=== PATIENT | female | born 1950 | race Caucasian/White ===

== ENCOUNTER 2016-06-28 19:08 | Observation (INO) | payer OTHER ==
[~2016-06-28] VITALS: Ht 167.6 cm; Wt 66.0 kg
[~2016-06-28 19:08] MED LIST: ACET325T45 PO; ALEN70TA30 PO; AMIT50TA3 PO; CALC500T PO; DIVA500T33 PO; FAMO-18 PO; FLUT16SP24 NASAL; HYDR-3498 PO; IBUP800T25 PO; LISI20TA11 PO; MULT1TAB13 PO; PROP10TA6 PO; RED600CA7 PO; SUMA100T9 PO; TRAM50TA2 PO; ZOLP5TAB PO
[2016-06-28] MEDS ORDERED: ASPIRIN 81 MG TAB PO STA (19:18)
[2016-06-28] MEDS ORDERED: NITROGLYCERIN 2% 1 GM OINT PKT TD STA (19:18)
[2016-06-28] MEDS ORDERED: NITROGLYCERIN (SL) 0.4 MG TAB SL PRN (19:30)
[2016-06-28 19:50] LABS: ADD SCAN DIFF NO
[2016-06-28 19:52] LABS: BASOPHIL # 0.1 10^3/ul (0.0-0.1); BASOPHILS % 0.8 % (0.0-2.0); EOSINOPHILS # 0.2 10^3/ul (0.0-0.5); EOSINOPHILS % 2.6 % (0.0-7.0); HEMATOCRIT 43.9 % (37.0-47.0); HEMOGLOBIN 14.3 g/dl (12.0-16.0); MEAN CORPUSCULAR HGB CONC 32.6 g/dl (32.0-37.0); MEAN PLATELET VOLUME 11.6 fl (7.4-10.4); MONOCYTE # 0.5 10^3/ul (0.3-0.9); NEUTROPHIL # 5.6 10^3/ul (1.6-7.5); NEUTROPHILS % 65.9 % (39.0-77.0); PLATELET COUNT 241 10^3/UL (140-415); RED BLOOD COUNT 4.77 10^6/ul (4.20-5.40); RED CELL DISTRIBUTION WIDTH 12.7 % (11.5-14.5); WHITE BLOOD COUNT 8.5 10^3/ul (4.8-10.8)
[2016-06-28 20:03] LABS: INR 0.94; PROTIME 12.6 Sec (12.2-14.2)
[2016-06-28 20:04] LABS: CHLORIDE 99 mmol/L (97-110); PARTIAL THROMBOPLASTIN TIME 29.2 Sec (25.0-35.0); POTASSIUM 4.1 mmol/L (3.5-5.1); SODIUM 141 mmol/L (135-144)
[2016-06-28 20:07] LABS: ANION GAP 19 (8-16); BLOOD UREA NITROGEN 11 mg/dl (7-20); CARBON DIOXIDE 27 mmol/L (21-31); CREATININE 0.61 mg/dl (0.44-1.00); GLUCOSE 131 mg/dl (70-220)
[2016-06-28 20:21] LABS: TROPONIN-I < 0.012 ng/ml (0.00-0.12)
--- NOTE | 2016-06-28 20:34 | RADRPT ---
PROCEDURE: XR Chest. CLINICAL INDICATION: Chest pain. TECHNIQUE: Portable AP upright view of the chest was obtained. COMPARISON: 05/23/2014 FINDINGS: The cardiomediastinal silhouette is within normal limits. The lungs are clear, mild elevation of th e right hemidiaphragm is unchanged. There is no evidence for pleural effusion, pneumothorax or pulm onary vascular congestion. The osseous structures are intact with no evidence for acute abnormality . RPTAT:HJJR IMPRESSION: No evidence for acute intrathoracic pathology or interval change from 05/23/2014. Physician Joann Date Time Electronically viewed and signed by Physician Joann on 06/28/2016 20:34 JR/
[2016-06-28] MEDS ORDERED: ALPR0.254 PO (20:46)
[2016-06-28] MEDS ORDERED: CITA20TA6 PO (20:46)
[2016-06-28] MEDS ORDERED: DICL75TA2 PO (20:47)
[2016-06-28] MEDS ORDERED: ZOLP10TA5 PO (20:48)
[2016-06-28] MEDS ORDERED: ERGO500037 PO (20:48)
[2016-06-28] MEDS ORDERED: OMEP40CA6 PO (20:49)
[2016-06-28] MEDS ORDERED: TRAZ50TA18 PO (20:49)
[2016-06-28] MEDS ORDERED: MONT10TA24 PO (20:50)
[2016-06-28] MEDS ORDERED: HYDR-902 PO (20:51)
[2016-06-28] MEDS ORDERED: ACETAMINOPHEN 325 MG TAB PO PRN (22:00)
[2016-06-28] MEDS ORDERED: ONDANSETRON 4 MG INJ IV PRN (22:00)
[2016-06-28] MEDS ORDERED: morphine 4 MG/ML VIAL IV STA (22:01)
[2016-06-28] MEDS ORDERED: ONDANSETRON 4 MG INJ IV STA (22:01)
[2016-06-28 22:23] VITALS: TEMP 98.5
--- NOTE | 2016-06-28 22:42 | ERA ---
ER Documentation Chief Complaint Date/Time DATE: 06/28/16 TIME: 22:41 Chief Complaint chest pain x 3 days HPI Patient is a 65-year-old female with back pain and hypertension who presents with chest pain. She says that she feels weak. She has sweats and decreased appetite over the past 3 days. The pain comes and goes. She feels palpitations as well. She tried [place] with minimal help. Upon review of old medical records the patient has multiple visits to the ER for various complaints. The patient's primary doctor is Dr. Canales. ROS All systems reviewed and are negative except as per history of present illness. Medications Home Meds Reported Medications Hydrocodone/Acetaminophen ([place] 10-325 Tablet) 1 Each Tablet, 1 EACH PO Q4H Y for PRN, TAB 06/28/16 Montelukast Sodium* (Montelukast Sodium*) 10 Mg Tablet, 10 MG PO QHS, #30 TAB 06/28/16 Omeprazole* (Omeprazole*) 40 Mg Capsule.dr, 40 MG PO DAILY, #30 CAP 06/28/16 Trazodone Hcl* (Trazodone Hcl*) 50 Mg Tablet, 50 MG PO QHS, #30 TAB 06/28/16 Zolpidem Tartrate* (Zolpidem Tartrate*) 10 Mg Tablet, 10 MG PO QHS Y for INSOMNIA, #30 TAB 06/28/16 Ergocalciferol (Vitamin D2) (VITAMIN D2) 50,000 Unit Capsule, 20227 UNIT PO Q7D , CAP 06/28/16 Diclofenac Sodium* (Diclofenac Sodium*) 75 Mg Tablet.dr, 75 MG PO BID, #60 TAB 06/28/16 Alprazolam* (Alprazolam*) 0.25 Mg Tablet, 0.25 MG PO DAILY Y for ANXIETY, TAB 06/28/16 Citalopram Hydrobromide* (Citalopram Hydrobromide*) 20 Mg Tablet, 20 MG PO DAILY , #30 TAB 06/28/16 Lisinopril* (Lisinopril*) 20 Mg Tablet, 20 MG PO DAILY, TAB 10/12/14 Propranolol Hcl* (Propranolol Hcl*) 10 Mg Tablet, 10 MG PO DAILY, TAB 10/12/14 Divalproex Sodium (Depakote) 500 Mg Tablet.dr, 500 MG PO DAILY 05/07/12 Discontinued Reported Medications Zolpidem Tartrate* (Ambien*) 5 Mg Tablet, 5 MG PO HS Y for INSOMNIA, TAB 10/12/14 Red Yeast Rice Extract (Red Yeast Rice) 600 Mg Capsule, 1200 MG PO DAILY 06/17/14 Famotidine* (Pepcid*) 20 Mg Tablet, 20 MG PO DAILY, TAB 06/17/14 Alendronate Sodium* (Fosamax*) 70 Mg Tablet, 70 MG PO Q7D, TAB ON Saturday06/17/14 Acetaminophen* (Acetaminophen*) 325 Mg Tablet, 325 MG PO BID Y for PAIN, TAB 06/17/14 Sumatriptan Succinate* (Imitrex*) 100 Mg Tablet, 100 MG PO BID Y for HEADACHE, TAB May repeat after 2 hours if needed; MAX 200 mg/24 hours 06/17/14 Fluticasone Propionate* (Flonase* Nasal) 50 Mcg/[place] - 16 Gm [place].susp, 2 SPRAY NASAL DAILY, SPRAY TO EACH NOSTRIL 05/23/14 Multivitamins W-Minerals (Daily Vitamin & Minerals) 1 Tab Tablet, 1 TAB PO DAILY 05/23/14 Calcium Carbonate* (Os-Shyam 500*) 1 Tab Tablet, 1 TAB PO DAILY, TAB 02/04/14 Amitriptyline Hcl* (Amitriptyline Hcl*) 50 Mg Tablet, 50 MG PO HS 05/07/12 Discontinued Scripts Ibuprofen* (Motrin*) 800 Mg Tab, 800 MG PO Q6, #30 TAB Prov:HORACE CHAUDHRY NP 05/16/15 Hydrocodone Bit-Acetaminophen* ([place]*) 5-325 Mg Tab, 1 TAB PO Q6 Y for PAIN, # 6 TAB Prov:MONALISA BROWN PA-C 12/18/14 Tramadol HCl (Tramadol HCl) 50 Mg Tab, 50 MG PO Q6 Y for PAIN, #20 TAB Prov:LAURA DENNEY MD 10/12/14 Allergies Allergies: Coded Allergies: Penicillins (Verified Allergy, Unknown, 06/28/16) codeine (Verified Allergy, Unknown, 06/28/16) PMhx/Soc History of Surgery: Yes (brain sx for aneurysm (1994), R SHOULDER SX) Anesthesia Reaction: No Hx Neurological Disorder: Yes (migraine, aneurysm) Hx Respiratory Disorders: No Hx Cardiac Disorders: No Hx Psychiatric Problems: No Hx Miscellaneous Medical Probl: Yes (OA) Hx Alcohol Use: No Hx Substance Use: Yes ( marijuana) Hx Tobacco Use: No Smoking Status: Current every day smoker FmHx Family History: coronary disease Physical Exam Vitals Vital Signs Date Time Temp Pulse Resp B/P Pulse Ox O2 Delivery O2 Flow Rate FiO2 06/28/16 22:23 98.5 20 117/83 98 06/28/16 19:12 98.5 72 20 128/60 96 Physical Exam Const: Mild distress Head: Atraumatic Eyes: Normal Conjunctiva ENT: Normal External Ears, Nose and Mouth. Neck: Full range of motion..~ No meningismus. Resp: Clear to auscultation bilaterally Cardio: Regular rate and rhythm, no murmurs Abd: Soft, non tender, non distended. Normal bowel sounds Skin: Pale and diaphoretic Back: No midline or flank tenderness Ext: No cyanosis, or edema Neur: Awake and alert Psych: Normal Mood and Affect Result Diagram: 06/28/16191906/28/161919 Results 24 hrs Laboratory Tests Test 06/28/16 19:20 White Blood Count 8.510^3/ul Red Blood Count 4.7710^6/ul Hemoglobin 14.3g/dl Hematocrit 43.9% Mean Corpuscular Volume 92.0fl Mean Corpuscular Hemoglobin 30.0pg Mean Corpuscular Hemoglobin Concent 32.6g/dl Red Cell Distribution Width 12.7% Platelet Count 01183^3/UL Mean Platelet Volume 11.6fl Neutrophils % 65.9% Lymphocytes % 24.0% Monocytes % 6.0% Eosinophils % 2.6% Basophils % 0.8% Nucleated Red Blood Cells % 0.0/100WBC Neutrophils # 5.610^3/ul Lymphocytes # 2.010^3/ul Monocytes # 0.510^3/ul Eosinophils # 0.210^3/ul Basophils # 0.110^3/ul Nucleated Red Blood Cells # 0.010^3/ul Prothrombin Time 12.6Sec Prothrombin Time Ratio 1.0 INR International Normalized Ratio 0.94 Activated Partial Thromboplast Time 29.2Sec Sodium Level 141mmol/L Potassium Level 4.1mmol/L Chloride Level 99mmol/L Carbon Dioxide Level 27mmol/L Anion Gap 19 Blood Urea Nitrogen 11mg/dl Creatinine 0.61mg/dl Glucose Level 131mg/dl Calcium Level 10.0mg/dl Troponin I < 0.012ng/ml Current Medications Medications (Trade) Dose Ordered Sig/Alexandr Route PRN Reason Start Time Stop Time Status Last Admin Dose Admin Aspirin (Aspirin) 162 mg ONCE STAT PO 06/28/16 19:18 06/28/16 19:20 DC 06/28/16 19:48 Nitroglycerin (Nitroglycerin 2% Oint) 1 inch ONCE STAT TD 06/28/16 19:18 06/28/16 19:20 DC 06/28/16 19:48 Nitroglycerin (Nitroglycerin (Sl Tab) 0.4 Mg) 1 tab Q5M UP TO 3 DOSES PRN SL CHEST PAIN 06/28/16 19:30 Ondansetron HCl (Zofran Inj) 4 mg ER BRIDGE PRN IV NAUSEA AND/OR VOMITING 06/28/16 22:00 06/29/16 21:59 Acetaminophen (Tylenol Tab) 650 mg ER BRIDGE PRN PO MILD PAIN/FEVER 06/28/16 22:00 06/29/16 21:59 Morphine Sulfate (morphine) 4 mg ONCE STAT IV 06/28/16 22:01 06/28/16 22:02 DC 06/28/16 22:31 Ondansetron HCl (Zofran Inj) 4 mg ONCE STAT IV 06/28/16 22:01 06/28/16 22:02 DC 06/28/16 22:31 Procedures/MDM EKG read by me: Rate/Rhythm: Regular rate and rhythm at a normal rate Intervals: Normal Impression: No evidence of ischemia or arrhythmia Chest x-ray shows no pneumonia or pneumothorax per radiology. Patient is a 65-year-old female presents with chest pain. I am concerned for possible acute coronary syndrome. I doubt pneumonia, pneumothorax, pulmonary embolism, or aortic dissection. The patient was given aspirin nitroglycerin. She will be admitted to the care of Dr. Simon as the patient has regal insurance. She will be admitted to a telemetry bed. Departure Diagnosis: Primary Impression: Chest pain Qualified Code: R07.9 - Chest pain, unspecified type Condition: LAURA Hidalgo MD Jun 28, 2016 22:42
[2016-06-28 23:09] VITALS: Ht 167.6 cm; Wt 66.0 kg
[2016-06-28 23:11] VITALS: PULSE 76
[2016-06-29] VITALS (8 sets, daily range): BP systolic 114–124; BP diastolic 58–71; PULSE 61–84; RESP 18
[2016-06-29] MEDS ORDERED: morphine 2 MG INJ IV PRN (01:00)
[2016-06-29] MEDS ORDERED: NITROGLYCERIN (SL) 0.4 MG TAB SL PRN (01:00)
[2016-06-29] MEDS ORDERED: ALPRAZOLAM 0.25 MG TAB PO PRN (01:00)
[2016-06-29] MEDS ORDERED: ZOLPIDEM 5 MG TAB PO PRN (01:00)
[2016-06-29] MEDS ORDERED: ONDANSETRON 4 MG INJ IV PRN (01:00)
[2016-06-29] MEDS ORDERED: DOCUSATE SODIUM 100 MG CAP PO PRN (01:00)
[2016-06-29] MEDS: PROPRANOLOL 10 MG TAB PO SCH ×2 (01:00→08:53)
[2016-06-29] MEDS ORDERED: NACL 0.9% 3 ML SYG IV SCH (01:00)
[2016-06-29] MEDS ORDERED: ACETAMINOPHEN 325 MG TAB PO PRN (01:00)
[2016-06-29] MEDS ORDERED: BISACODYL 10 MG SUPP PR PRN (01:00)
[2016-06-29] MEDS ORDERED: MAGNESIUM HYDROXIDE 30ML CUP PO PRN (01:00)
[2016-06-29 01:19] LABS: CREATINE KINASE 21 IU/L (23-200)
[2016-06-29] MEDS: SOD CHLORIDE 0.9% 1,000 ML IV SCH ×2 (01:31→13:17)
[2016-06-29] MEDS: HYDROCODONE/APAP (10/325) TAB PO PRN ×2 (01:32→08:59)
[2016-06-29 01:42] LABS: CK-MB < 0.22 ng/ml (0.0-2.4); TROPONIN-I < 0.012 ng/ml (0.00-0.12)
[2016-06-29] MEDS ORDERED: PANTOPRAZOLE (EC) 40 MG TAB PO SCH (06:00)
[2016-06-29 07:53] LABS: ADD SCAN DIFF NO
[2016-06-29 07:58] LABS: BASOPHIL # 0.1 10^3/ul (0.0-0.1); BASOPHILS % 0.7 % (0.0-2.0); EOSINOPHILS # 0.3 10^3/ul (0.0-0.5); EOSINOPHILS % 2.8 % (0.0-7.0); HEMATOCRIT 34.1 % (37.0-47.0); HEMOGLOBIN 11.2 g/dl (12.0-16.0); LYMPHOCYTES # 3.4 10^3/ul (0.8-2.9); LYMPHOCYTES % 38.4 % (15.0-51.0); MEAN CORPUSCULAR HGB CONC 32.8 g/dl (32.0-37.0); MEAN CORPUSCULAR VOLUME 91.4 fl (82.0-101.0); MEAN PLATELET VOLUME 11.3 fl (7.4-10.4); MONOCYTE # 0.7 10^3/ul (0.3-0.9); MONOCYTES % 8.1 % (0.0-11.0); NEUTROPHIL # 4.4 10^3/ul (1.6-7.5); NEUTROPHILS % 49.4 % (39.0-77.0); PLATELET COUNT 204 10^3/UL (140-415); RED BLOOD COUNT 3.73 10^6/ul (4.20-5.40); RED CELL DISTRIBUTION WIDTH 12.7 % (11.5-14.5); WHITE BLOOD COUNT 8.9 10^3/ul (4.8-10.8)
[2016-06-29 08:20] LABS: ALBUMIN 3.5 g/dl (3.3-4.9)
[2016-06-29 08:21] LABS: POTASSIUM 3.8 mmol/L (3.5-5.1)
[2016-06-29 08:23] LABS: ALBUMIN/GLOBULIN RATIO 1.16; BILIRUBIN,INDIRECT 0.2 mg/dl (0-1.1); BILIRUBIN,TOTAL 0.2 mg/dl (0.2-1.3); CREATININE 0.59 mg/dl (0.44-1.00); TOTAL PROTEIN 6.5 g/dl (6.1-8.1)
[2016-06-29 08:24] LABS: CALCIUM 9.1 mg/dl (8.4-10.2); CHOL/HDL RATIO 3.2 RATIO
[2016-06-29 08:28] LABS: CREATINE KINASE < 20 IU/L (23-200)
[2016-06-29 08:29] LABS: CK-MB 0.34 ng/ml (0.0-2.4)
[2016-06-29 08:39] LABS: TROPONIN-I < 0.012 ng/ml (0.00-0.12)
[2016-06-29] MEDS ORDERED: DIVALPROEX (EC) 500 MG TAB PO SCH (09:00)
[2016-06-29] MEDS ORDERED: ENOXAPARIN 40 MG/0.4 ML SYG SC SCH (09:00)
[2016-06-29] MEDS ORDERED: CITALOPRAM 20 MG TAB PO SCH (09:00)
[2016-06-29] MEDS ORDERED: ASPIRIN 81 MG TAB PO SCH (09:00)
[2016-06-29] MEDS ORDERED: LISINOPRIL 20 MG TAB PO SCH (09:00)
--- NOTE | 2016-06-29 10:09 | HP ---
DATE OF ADMISSION: 06/28/2016 CHIEF COMPLAINT ON ADMISSION: Chest pain. HISTORY OF PRESENT ILLNESS: This is a 65-year-old female with multiple chronic history of multiple herniated disks, back pain, apparently a T-spine fracture, osteoporosis, osteoarthritis, migraine he adaches, hypertension, major depressive disorder, who presented to the emergency department with com plaints of chest pains for the past 3 days. The patient reports that the pain is sharp. It is repr oducible on exam, and it comes and goes. She has had MRI of her brain, lumbar spine and another lev el, apparently either her knees or her thoracic spine, 3 weeks ago by her primary care physician and was told there were no acute findings already. Her migraine headaches are at baseline and again sh e has already been worked up as an outpatient and put on appropriate therapy by her primary care Dr. Parker acosta. The patient reports that she had a stress test a year ago which was negative. Th is was prior to surgery she had to have done. She denies any diabetes mellitus, previous coronary a rtery disease or peripheral vascular disease. She had a history of brain aneurysm that had to be re moved apparently years ago. She is currently awaiting knee replacement from what she is reporting. The patient reports that with the chest discomfort/chest pains, she had some palpitations and diaph oresis, also some nausea. However, the pain is described as sharp and again on exam and during echo cardiogram, she reports that it was reproducible with the echocardiogram probe. This morning, her b lood pressure is stable, no signs of diaphoresis. No nausea, no vomiting. Cardiology evaluation pe nding, but 2-D echocardiogram has been done. Cardiac enzymes are negative x3. ALLERGIES 1. PENICILLIN. 2. CODEINE. PAST MEDICAL HISTORY: 1. Chronic migraine headaches. 2. Chronic pain from herniated disk. 3. Chronic back pain including thoracic spine. 4. History of thoracic spine compression fracture, from what she is reporting, it is unclear which level, but patient had followup MRI 3 weeks ago that were reviewed by her primary care physician tashi jensen. 5. Hypertension. 6. Major depressive disorder. 7. Osteoporosis. 8. Osteoarthritis. PAST SURGICAL HISTORY: 1. Status post brain aneurysm removal, remotely. 2. Status post left hip surgery. 3. Status post right shoulder surgery. 4. Status post appendectomy, remotely. 5. Status post cholecystectomy, remotely. OUTPATIENT MEDICATIONS: 1. Lisinopril 20 mg p.o. daily. 2. Propranolol 10 mg p.o. daily. 3. Alprazolam 0.25 mg p.o. daily p.r.n. anxiety. 4. Citalopram 20 mg p.o. daily. 5. Diclofenac 75 mg p.o. b.i.d. 6. Depakote 500 mg p.o. daily. 7. [place] 10/325 one tab p.o. q.4h. p.r.n. pain. 8. Trazodone 50 mg p.o. at bedtime. 9. Ambien 10 mg p.o. at bedtime p.r.n. insomnia. 10. Singulair 10 mg p.o. at bedtime. 11. Omeprazole 40 mg p.o. daily. 12. Vitamin D3 50,000 units q. weekly. PHYSICAL EXAMINATION: VITAL SIGNS: Temperature is 98.0, heart rate of 77, respiratory rate of 18, blood pressure 116/71. The patient is saturating 93% on room air. GENERAL: She is alert and oriented x4. Currently, she is in no acute distress. She was complainin g of a headache; therefore, the nitro paste was removed. HEENT: Pupils are equally round and reactive to light. Extraocular muscles are intact. Anicteric sclerae. NECK: No JVD, no thyromegaly noted. HEART: Regular rate and rhythm. No murmur, rubs, or gallops. No murmur, rubs, or gallops. The ch est pain she is describing is reproducible on deep palpation of the chest wall. LUNGS: Clear to auscultation bilaterally. ABDOMEN: Soft, nontender, nondistended. Bowel sounds are present. EXTREMITIES: No edema, clubbing or cyanosis. The patient does have crepitus in her knees. She has scars on her left hip from a previous surgery. Also, a scar on her right shoulder from previous ralph rgery. NEUROLOGIC: Grossly intact. LABORATORY DATA: White blood cell count 8.9, hemoglobin 11.2, hematocrit 34.1, platelet count of 20 4. Chemistry with a sodium of 142, potassium 3.8, chloride 106, bicarbonate 26, BUN 9, creatinine 0 .59, glucose 92, calcium 9.1. Total bilirubin 0.2, AST 17, ALT 21, alkaline phosphatase of 68. Tro ponin less than 0.012 x3. LFTs within normal. Cholesterol level fairly normal. INR 0.94, PT 12.6, PTT 29.2. Chest x-ray shows no evidence of intrathoracic pathology or changes. EKG shows normal sinus rhythm, no acute ST or T-wave abnormalities. ASSESSMENT AND PLAN: This is a 65-year-old female with: 1. Chest pain which is fairly atypical, reproducible. Echocardiogram has been done, to be reviewed by Dr. Jack. Cardiac enzymes are negative x3. EKG stable. This seems to be very atypical there fore, if okay with cardiology after evaluation, the patient may be discharged home with outpatient c ardiology followup if no further cardiac evaluation to be done. 2. Hypertension. Blood pressure is stable. Continue home medications. 3. Migraine headache. Continue home medication. 4. Major depressive disorder. Continue home medication. 5. Chronic pain. Continue narcotics as needed. Of note, the patient also uses marijuana for pain management. She uses 1 joint every 5 days. 6. Osteoporosis and osteoarthritis with known disk herniation and T-spine compression fracture, all stable per patient. MRIs have been as an outpatient. 7. History of brain aneurysm removal with ongoing migraine headaches. MRI brain had been done appr oximately 3 weeks ago and again the patient is reporting it was within normal according to her prima care physician. 8. Prophylaxis. Lovenox for deep venous thrombosis prophylaxis. Pepcid for gastrointestinal proph ylaxis. DISPOSITION: Cardiology evaluation pending and if okay with bullard operator, the patient may be discha rged home later today if no further workup needed. Dictated By: SAGRARIO TOUSSAINT/NTS Conf#: [id number] DID#: [id number]
--- NOTE | 2016-06-29 14:17 | PDOCDIS ---
Discharge Instructions CONDITION Patient Condition: Good HOME CARE INSTRUCTIONS: Diet Instructions: Reduced Sodium ACTIVITY: Activity Restrictions: Slowly Increase Activity FOLLOW UP/APPOINTMENTS Appointments Follow up with PCP within 1 week Follow up with cardiology as outpatient as needed SAGRARIO MCDUFFIE Jun 29, 2016 14:17
--- NOTE | 2016-06-29 15:25 | CONS ---
Date/Time of Note Date/Time of Note DATE: 06/29/16 TIME: 15:23 Assessment/Plan Assessment/Plan Additional Assessment/Plan ATYPICAL CHEST PAIN HTN HX OF CEREBRAL ANEURSYM DEPRESSION VERY ATYPICAL CHEST PAIN, NORMAL TROPS, NO EKG CAHNGES UNLIKELY CARIDAC IN ORIGIN BP MANAGMENT D/C PLANNING Consultation Date/Type/Reason Admit Date/Time Jun 28, 2016 at 21:52 Hx of Present Illness This is a 65-year-old female with multiple chronic history of multiple herniated disks, back pain, apparently a T-spine fracture, osteoporosis, osteoarthritis, migraine headaches, hypertension, major depressive disorder, who presented to the emergency department with complaints of chest pains for the past 3 days. The patient reports that the pain is sharp. It is reproducible on exam, and it comes and goes. She has had MRI of her brain, lumbar spine and another level, apparently either her knees or her thoracic spine, 3 weeks ago by her primary care physician and was told there were no acute findings already. Her migraine headaches are at baseline and again she has already been worked up as an outpatient and put on appropriate therapy by her primary care physician, Dr. Canales. The patient reports that she had a stress test a year ago which was negative. This was prior to surgery she had to have done. She denies any diabetes mellitus, previous coronary artery disease or peripheral vascular disease. She had a history of brain aneurysm that had to be removed apparently years ago. She is currently awaiting knee replacement from what she is reporting. The patient reports that with the chest discomfort/chest pains, she had some palpitations and diaphoresis, also some nausea. However, the pain is described as sharp and again on exam and during echocardiogram, she reports that it was reproducible with the echocardiogram probe. This morning, her blood pressure is stable, no signs of diaphoresis. No nausea, no vomiting. Cardiology evaluation pending, but 2-D echocardiogram has been done. Cardiac enzymes are negative x3. Social History Smoking Status: Current every day smoker Exam/Review of Systems Vital Signs Vitals Vital Signs Date Time Temp Pulse Resp B/P Pulse Ox O2 Delivery O2 Flow Rate FiO2 06/29/16 12:15 61 06/29/16 12:09 98.5 18 114/61 97 Results Result Diagram: 06/29/16 0735 06/29/16 0735 Results 24 hrs Laboratory Tests Test 06/28/16 19:20 4/14/17 00:53 06/29/16 07:35 White Blood Count 8.5 # 8.9 Red Blood Count 4.77 3.73 #L Hemoglobin 14.3 # 11.2 #L Hematocrit 43.9 # 34.1 #L Mean Corpuscular Volume 92.0 91.4 Mean Corpuscular Hemoglobin 30.0 30.0 Mean Corpuscular Hemoglobin Concent 32.6 32.8 Red Cell Distribution Width 12.7 12.7 Platelet Count 241 204 Mean Platelet Volume 11.6 #H 11.3 H Neutrophils % 65.9 49.4 Lymphocytes % 24.0 38.4 Monocytes % 6.0 8.1 Eosinophils % 2.6 2.8 Basophils % 0.8 0.7 Nucleated Red Blood Cells % 0.0 0.0 Neutrophils # 5.6 4.4 Lymphocytes # 2.0 3.4 H Monocytes # 0.5 0.7 Eosinophils # 0.2 0.3 Basophils # 0.1 0.1 Nucleated Red Blood Cells # 0.0 0.0 Prothrombin Time 12.6 Prothrombin Time Ratio 1.0 INR International Normalized Ratio 0.94 Activated Partial Thromboplast Time 29.2 Sodium Level 141 142 Potassium Level 4.1 3.8 Chloride Level 99 106 Carbon Dioxide Level 27 26 Anion Gap 19 H 14 Blood Urea Nitrogen 11 9 Creatinine 0.61 0.59 Glucose Level 131 92 Calcium Level 10.0 9.1 Troponin I < 0.012 < 0.012 < 0.012 Creatine Kinase 21 L < 20 L Creatine Kinase Index 1.0 Creatinine Kinase MB (Mass) < 0.22 0.34 Magnesium Level 2.0 Total Bilirubin 0.2 Direct Bilirubin 0.00 Indirect Bilirubin 0.2 Aspartate Amino Transf (AST/SGOT) 17 Alanine Aminotransferase (ALT/SGPT) 21 Alkaline Phosphatase 68 Total Protein 6.5 Albumin 3.5 Globulin 3.00 Albumin/Globulin Ratio 1.16 Triglycerides Level 140 Cholesterol Level 105 LDL Cholesterol, Calculated 45 HDL Cholesterol 32 L Cholesterol/HDL Ratio 3.2 Medications Medications Current Medications Sodium Chloride (NS) 1,000 ml @ 100 mls/hr Q10H IV Last administered on t 13:17; Admin Dose 100 MLS/HR; Start 06/29/16 at 00:41 Ondansetron HCl (Zofran Inj) 4 mg Q6H PRN IV NAUSEA AND/OR VOMITING; Start at 01:00 Aspirin (Aspirin) 81 mg DAILY PO Last administered on 06/29/16 08:51; Admin Dose 81 MG; Start 06/29/16 at 09:00 Nitroglycerin (Nitroglycerin (Sl Tab) 0.4 Mg) 1 tab Q5M PRN SL CHEST PAIN; Start 06/29/16 at 01:00 Acetaminophen (Tylenol Tab) 650 mg Q6H PRN PO PAIN LEVEL 1-3 OR FEVER; Start at 01:00 Morphine Sulfate (morphine) 2 mg Q4H PRN IV PAIN LEVEL 7-10; Start 06/29/16 at 01:00 Docusate Sodium (Colace) 100 mg Q12H PRN PO CONSTIPATION; Start 06/29/16 at 01: 00 Magnesium Hydroxide (Milk Of Mag) 30 ml DAILY PRN PO CONSTIPATION; Start at 01:00 Bisacodyl (Dulcolax Supp) 10 mg DAILY PRN CA CONSTIPATION; Start 06/29/16 at 01 :00 Pantoprazole (Protonix Tab) 40 mg DAILY@06 PO Last administered on 06/29/16 06 :00; Admin Dose 40 MG; Start 06/29/16 at 06:00 Enoxaparin Sodium (Lovenox) 40 mg DAILY SC Last administered on 06/29/16 08:54 ; Admin Dose 40 MG; Start 06/29/16 at 09:00 Alprazolam (Xanax) 0.25 mg Q8 PRN PO ANXIETY; Start 06/29/16 at 01:00 Citalopram Hydrobromide (Celexa) 20 mg DAILY PO Last administered on 06/29/16 08:52; Admin Dose 20 MG; Start 06/29/16 at 09:00 Divalproex Sodium (Depakote) 500 mg DAILY PO Last administered on 06/29/16 08: 52; Admin Dose 500 MG; Start 06/29/16 at 09:00 Acetaminophen/ Hydrocodone Bitart ([place] (10/325)) 1 tab Q4H PRN PO PAIN Last administered on 06/29/16 08:59; Admin Dose 1 TAB; Start 06/29/16 at 01:00 Lisinopril (Zestril) 20 mg DAILY PO Last administered on 06/29/16 08:53; Admin Dose 20 MG; Start 06/29/16 at 09:00 Montelukast Sodium (Singulair) 10 mg QHS PO ; Start 06/29/16 at 21:00 Propranolol HCl (Inderal) 10 mg BID PO Last administered on 06/29/16 08:53; Admin Dose 10 MG; Start 06/29/16 at 01:00 Trazodone HCl (Desyrel) 50 mg QHS PO ; Start 06/29/16 at 21:00 FRANCISCO AMAYA MD Jun 29, 2016 15:25
--- NOTE | 2016-06-29 16:12 | RADRPT ---
Echocardiogram Report Patient Name: GRICELDA CRONIN Gender: Female Date: 1950 Study Date: 29-Jun-2016 Android Platform Developer: JOSE Cruz [facility] Location: [id number] Ref. Physician: SHANTELL MCDUFFIE Quality: Adequate Procedures: Transthoracic echocardiogram with complete 2D, M-Mode, and doppler examination. Indications: Chest Pain. 2D/M Mode Doppler Measurement Value Normal Ranges Measurement Value Normal Ranges LVIDd 2D 4.1 3.5 - 5.6 cm AV Peak Suhas 1.4 m/sec LVIDs 2D 2.5 2.1 - 4.1 cm AV Peak PG 8.0 mmHg FS 2D 39.0 % LVOT Peak Suhas 1.2 m/sec LVPWd 2D 0.8 0.6 - 1.1 cm LVOT Peak PG 6.0 mmHg IVSd 2D 0.8 0.6 - 1.1 cm MV E Peak Suhas 0.8 m/sec IVS/LVPW 2D 1.0 MV A Peak Suhas 1.0 m/sec AoR Diam 2D 2.0 2.0 - 3.7 cm MV E/A 0.8 LA/Ao 2D 1 0 - 1 MV Decel Time 190 msec EDV 2D 66.4 cm3 MV E/A 0.8 ESV 2D 15.1 cm3 TR Peak Suhas 2.9 m/sec LA Dimen 2D 2.1 2.3 - 4.0 cm TR Peak PG 34.0 mmHg RVSP 37.0 mmHg Findings Left Ventricle: Normal left ventricular systolic function. Normal left ventricular wall thickness. Ejection fraction is visually estimated at 65 %. Tissue Doppler/Mitral Doppler indices are consistent with impaired relaxation (Stage I diastolic dysfunction). Right Ventricle: Normal right ventricular size. Normal right ventricular systolic function. Left Atrium: The left atrium is normal in size. Right Atrium: The right atrium is normal in size. Mitral Valve: Mitral valve leaflets appear mildly thickened. Mild mitral valve regurgitation. Aortic Valve: No aortic regurgitation. Tricuspid Valve: Normal appearance of the tricuspid valve. Estimated peak PA systolic pressure 37 mmHg. There is mild tricuspid regurgitation. Pulmonic Valve: Pulmonic valve not well visualized. Pericardium: Normal pericardium with no significant pericardial effusion. Aorta: Normal aortic root. IVC: Normal size and normal respiratory collapse consistent with normal right atrial pressure. Conclusions 1.Normal left ventricular systolic function. Normal left ventricular wall thickness. Ejection fraction is visually estimated at 65 %. Tissue Doppler/Mitral Doppler indices are consistent with impaired relaxation (Stage I diastolic dysfunction). 2.The left atrium is normal in size. 3.Mitral valve leaflets appear mildly thickened. Mild mitral valve regurgitation. 4.No aortic regurgitation. 5.Normal appearance of the tricuspid valve. Estimated peak PA systolic pressure 37 mmHg. There is mild tricuspid regurgitation. 6.Pulmonic valve not well visualized. 7.Normal pericardium with no significant pericardial effusion. Electronically Signed By: Selvin Jack 29-Jun-2016 16:11:55 -0700 Patient Name: GRICELDA CRONIN Study Date: 29-Jun-[id number]
[2016-06-29] MEDS ORDERED: traZODone 50 MG TAB PO SCH (21:00)
[2016-06-29] MEDS ORDERED: MONTELUKAST 10 MG TAB PO SCH (21:00)
== END 2016-06-29 17:00 | disposition home or self-care (01) ==
LOC: E/R 19:08 → MS4 21:52
PROVIDERS: ADMIT Internal Medicine; ATTEND Internal Medicine
DX: R07.89 Other chest pain (principal); I10 Essential (primary) hypertension; F32.9 Major depressive disorder, single episode, unspecified; M81.0 Age-related osteoporosis without current pathological fracture; M19.90 Unspecified osteoarthritis, unspecified site; G43.909 Migraine, unspecified, not intractable, without status migrainosus; G89.29 Other chronic pain; F17.200 Nicotine dependence, unspecified, uncomplicated; Z88.0 Allergy status to penicillin; Z88.5 Allergy status to narcotic agent; Z90.49 Acquired absence of other specified parts of digestive tract; Z82.49 Family history of ischemic heart disease and other diseases of the circulatory system
CPT/HCPCS: 36415; 71010; 80048; 80053; 80061; 82550; 82553; 83735; 84484; 85025; 85610; 85730; 93005; 93306; 96360; 96361; 96372; 96374; 96375; 99285; G0378; J1650; J2270; J2405; J7030

== ENCOUNTER 2016-07-16 14:28 | Emergency (ER) | payer MEDICARE, OTHER ==
[~2016-07-16] VITALS: Ht 165.1 cm; Wt 65.0 kg
[~2016-07-16 14:28] MED LIST changes: -ACET325T45 PO; -ALEN70TA30 PO; +ALPR0.254 PO; -AMIT50TA3 PO; -CALC500T PO; +CITA20TA6 PO; +ERGO500037 PO; -FAMO-18 PO; -FLUT16SP24 NASAL; -HYDR-3498 PO; +HYDR-902 PO; -IBUP800T25 PO; +MONT10TA24 PO; -MULT1TAB13 PO; +OMEP40CA6 PO; -RED600CA7 PO; -SUMA100T9 PO; -TRAM50TA2 PO; +TRAZ50TA18 PO; +ZOLP10TA5 PO; -ZOLP5TAB PO
[2016-07-16 14:41] VITALS: Ht 165.1 cm; Wt 65.0 kg
[2016-07-16] MEDS ORDERED: HYDROCODONE/APAP (5/325) TAB PO ONE (18:30)
--- NOTE | 2016-07-16 19:23 | RADRPT ---
PROCEDURE: CT Brain without contrast. CLINICAL INDICATION: Headache for 4 days. TECHNIQUE: A CT of the brain was performed on a high-resolution CT scanner utilizing a low dose te chnique with axial imaging from the skull base through the vertex without IV contrast. Multiplanar reformatted images were made. Images were reviewed on a PACS workstation. The CTDIvol is 40.2 mGy and the DLP is 768 mGycm. One or more of the following dose reduction techniques were used: - Automated exposure control. - Adjustment of the mA and/or kV according to patient size. Use of iterative reconstruction technique. COMPARISON: CT brain 06/17/2014. FINDINGS: The craniotomy was performed with a compression plate secured to the dorsal convexity of the right p arietal bone. There is encephalomalacia involving convexity of the right parietal lobe. Chronic sm all vessel ischemic changes are present in the periventricular white matter tracts adjacent to the f rontal horns of the lateral ventricles.. The fourth and third ventricles are normal in size configu ration. The lateral ventricles are normal. The visible portions of the paranasal sinuses and masto id air cells are clear bilaterally. The globes and extraocular muscles are normal. Atherosclerotic calcifications are noted in the cavernous portions of the internal carotid arteries. IMPRESSION: 1. No acute intracranial abnormality is identified. No intracranial hemorrhages identified. A CT a ngiogram can be performed if clinically indicated to search for an aneurysm. 2. Encephalomalacia involving the dorsal medial convexity of the right parietal lobe with evidence of prior right parietal/occipital craniotomy. 2. Chronic small vessel ischemic changes in the periventricular white matter tracts adjacent to the frontal horns of the lateral ventricles. 3. Atherosclerosis involving the cavernous portions of the internal carotid arteries. There has bee n no significant change as compared to 06/17/2014. RPTAT:AAJJ Physician Hi Date Time Electronically viewed and signed by Physician Hi on 07/16/2016 19:23 TOMASA/
--- NOTE | 2016-07-16 19:29 | RADRPT ---
PROCEDURE: CT facial bones CLINICAL INDICATION: Facial numbness, TECHNIQUE: Multiphase CT scan of the face was performed in the axial plane. Coronal and sagittal re-formations were performed. The calculated radiation dose measures 768 mGy centimeters. The CTDI m easures 40 mGy COMPARISON: None FINDINGS: The mandible is identified demonstrating no evidence of fracture or bony dysplasia. There is no abby dence of adjacent soft tissue swelling. The mid face and bony orbits demonstrate no evidence of acute fracture. Evaluation of the orbits de monstrates the globes to be normal in their size, shape, and attenuation bilaterally. There is bilat eral optic lens thinning. No definite intra or extraconal soft tissue masses are seen. The optic ne rve and nerve sheath complexes bilaterally appear unremarkable. There is mucosal thickening in the paranasal sinuses. There is degenerative change of the bilateral temporomandibular joints. IMPRESSION: 1. No visualized fracture or dislocation. 2. Mild chronic sinus disease change. Degenerative change of the bilateral temporomandibular joint s. RPTAT: HBST . .Robi Moore MD, MD Date Time Electronically viewed and signed by .Robi Moore MD, MD on 07/16/2016 19:28 .T/
[2016-07-16] MEDS ORDERED: morphine 10 MG INJ IM ONE (20:30)
[2016-07-16 20:55] VITALS: BP 136/82; PULSE 62; RESP 20; TEMP 97.9
--- NOTE | 2016-07-16 20:55 | ERD ---
ER Documentation Chief Complaint Date/Time DATE: 07/16/16 TIME: 20:51 Chief Complaint Complains of numbness to right side for the face HPI This patient is a 65-year-old female with history of intracranial aneurysm in 1994 with successful repair, hypertension, and arthritis presenting to the emergency department with numbness to the right side of the face which feels like a "electrical shock" which began at approximately 9 AM today. Symptoms are intermittent. The patient took Meservey with mild relief of symptoms. She states she is chronically in a wheelchair. The patient denies any weakness one side of the body. The patient denies ataxia when she is out of her wheelchair. The patient denies trouble with speech. She has had no loss of bowel or bladder function. She denies chest pain and shortness of breath. There are no other symptoms or complaints currently. ROS All systems reviewed and are negative except as per history of present illness. Medications Home Meds Reported Medications Hydrocodone/Acetaminophen (Meservey 10-325 Tablet) 1 Each Tablet, 1 EACH PO Q4H Y for PRN, TAB 06/28/16 Montelukast Sodium* (Montelukast Sodium*) 10 Mg Tablet, 10 MG PO QHS, #30 TAB 06/28/16 Omeprazole* (Omeprazole*) 40 Mg Capsule.dr, 40 MG PO DAILY, #30 CAP 06/28/16 Trazodone Hcl* (Trazodone Hcl*) 50 Mg Tablet, 50 MG PO QHS, #30 TAB 06/28/16 Zolpidem Tartrate* (Zolpidem Tartrate*) 10 Mg Tablet, 10 MG PO QHS Y for INSOMNIA, #30 TAB 06/28/16 Ergocalciferol (Vitamin D2) (VITAMIN D2) 50,000 Unit Capsule, 68976 UNIT PO Q7D , CAP 06/28/16 Alprazolam* (Alprazolam*) 0.25 Mg Tablet, 0.25 MG PO DAILY Y for ANXIETY, TAB 06/28/16 Citalopram Hydrobromide* (Citalopram Hydrobromide*) 20 Mg Tablet, 20 MG PO DAILY , #30 TAB 06/28/16 Lisinopril* (Lisinopril*) 20 Mg Tablet, 20 MG PO DAILY, TAB 10/12/14 Propranolol Hcl* (Propranolol Hcl*) 10 Mg Tablet, 10 MG PO DAILY, TAB 10/12/14 Divalproex Sodium (Depakote) 500 Mg Tablet.dr, 500 MG PO DAILY 05/07/12 Allergies Allergies: Coded Allergies: Penicillins (Verified Allergy, Unknown, 06/28/16) codeine (Verified Allergy, Unknown, 06/28/16) PMhx/Soc History of Surgery: Yes (Brain, shoulder, hip, partial hysterectomy, gallbladder.) Anesthesia Reaction: No Hx Neurological Disorder: No Hx Respiratory Disorders: No Hx Cardiac Disorders: No Hx Psychiatric Problems: No Hx Miscellaneous Medical Probl: No Hx Alcohol Use: No Hx Substance Use: Yes (Marijuana) Hx Tobacco Use: Yes Smoking Status: Current some day smoker FmHx Noncontributory for chief complaint Physical Exam Vitals Vital Signs Date Time Temp Pulse Resp B/P Pulse Ox O2 Delivery O2 Flow Rate FiO2 07/16/16 14:41 98.3 68 20 150/94 96 Physical Exam Const: The patient is resting comfortably in the gurney. Head: Atraumatic Eyes: Normal Conjunctiva ENT: Normal External Ears, Nose and Mouth. Neck: Full range of motion..~ No meningismus. Resp: Clear to auscultation bilaterally Cardio: Regular rate and rhythm, no murmurs Abd: Soft, non tender, non distended. Normal bowel sounds Skin: No petechiae or rashes Back: No midline or flank tenderness Ext: No cyanosis, or edema Neur: Awake and alert. Cranial nerves intact. No deficits unilaterally. The patient has intact strength and sensation in bilateral upper and lower extremities. Psych: Normal Mood and Affect Results 24 hrs Current Medications Medications (Trade) Dose Ordered Sig/Alexandr Route PRN Reason Start Time Stop Time Status Last Admin Dose Admin Acetaminophen/ Hydrocodone Bitart (Meservey (5/325)) 1 tab ONCE ONCE PO 07/16/16 18:30 07/16/16 18:31 DC 07/16/16 18:27 Morphine Sulfate (morphine) 1 mg ONCE ONCE IM 07/16/16 20:30 07/16/16 20:31 DC 07/16/16 20:44 Procedures/MDM 65-year-old female presents to the emergency department for numbness to the right side of her face. On physical examination the patient has no neurological deficits. The patient's blood pressure slightly elevated at 150/ 94. Patient's blood pressure was elevated (>120/80) but appears stable without evidence of hypertension emergency or urgency. The patient was counseled about the risks of hypertension and urged to pursue outpatient monitoring and therapy within a week with their primary care physician. Radiology: PROCEDURE: CT Brain without contrast. CLINICAL INDICATION: Headache for 4 days. TECHNIQUE: A CT of the brain was performed on a high-resolution CT scanner utilizing a low dose technique with axial imaging from the skull base through the vertex without IV contrast. Multiplanar reformatted images were made. Images were reviewed on a PACS workstation. The CTDIvol is 40.2 mGy and the DLP is 768 mGycm. One or more of the following dose reduction techniques were used: - Automated exposure control. - Adjustment of the mA and/or kV according to patient size. Use of iterative reconstruction technique. COMPARISON: CT brain 06/17/2014. FINDINGS: The craniotomy was performed with a compression plate secured to the dorsal convexity of the right parietal bone. There is encephalomalacia involving convexity of the right parietal lobe. Chronic small vessel ischemic changes are present in the periventricular white matter tracts adjacent to the frontal horns of the lateral ventricles.. The fourth and third ventricles are normal in size configuration. The lateral ventricles are normal. The visible portions of the paranasal sinuses and mastoid air cells are clear bilaterally. The globes and extraocular muscles are normal. Atherosclerotic calcifications are noted in the cavernous portions of the internal carotid arteries. IMPRESSION: 1. No acute intracranial abnormality is identified. No intracranial hemorrhages identified. A CT angiogram can be performed if clinically indicated to search for an aneurysm. 2. Encephalomalacia involving the dorsal medial convexity of the right parietal lobe with evidence of prior right parietal/occipital craniotomy. 2. Chronic small vessel ischemic changes in the periventricular white matter tracts adjacent to the frontal horns of the lateral ventricles. 3. Atherosclerosis involving the cavernous portions of the internal carotid arteries. There has been no significant change as compared to 06/17/2014. RPTAT:AAJJ Physician Hi Date Time Electronically viewed and signed by Lyle Ella, Physician on 07/16/2016 19:23 JM/ CC: CHAPITO IZQUIERDO PA-C PROCEDURE: CT facial bones CLINICAL INDICATION: Facial numbness, TECHNIQUE: Multiphase CT scan of the face was performed in the axial plane. Coronal and sagittal re-formations were performed. The calculated radiation dose measures 768 mGy centimeters. The CTDI measures 40 mGy COMPARISON: None FINDINGS: The mandible is identified demonstrating no evidence of fracture or bony dysplasia. There is no evidence of adjacent soft tissue swelling. The mid face and bony orbits demonstrate no evidence of acute fracture. Evaluation of the orbits demonstrates the globes to be normal in their size, shape, and attenuation bilaterally. There is bilateral optic lens thinning. No definite intra or extraconal soft tissue masses are seen. The optic nerve and nerve sheath complexes bilaterally appear unremarkable. There is mucosal thickening in the paranasal sinuses. There is degenerative change of the bilateral temporomandibular joints. IMPRESSION: 1. No visualized fracture or dislocation. 2. Mild chronic sinus disease change. Degenerative change of the bilateral temporomandibular joints. RPTAT: HBST . .Robi Moore MD, MD Date Time Electronically viewed and signed by .Robi Moore MD, on 07/16/2016 19:28 .T/ CC: CHAPITO IZQUIERDO PA-C The patient was given p.o. Meservey and IM morphine in the department and is feeling improved on reevaluation. The patient is stable for outpatient management with close follow-up with her primary care physician. I discussed the ED course with Dr. Milana Lovell who agreed with the history, clinical examination, diagnostic testing, discharge diagnosis and plan. I have low suspicion for intracranial hemorrhage, TIA, CVA, or other emergent conditions. Strict ER return precautions discussed and the patient demonstrates good understanding. Departure Diagnosis: Primary Impression: Facial paresthesia Condition: Fair Patient Instructions: Paraesthesias Referrals: COMMUNITY CLINICS YOU HAVE RECEIVED A MEDICAL SCREENING EXAM AND THE RESULTS INDICATE THAT YOU DO NOT HAVE A CONDITION THAT REQUIRES URGENT TREATMENT IN THE EMERGENCY DEPARTMENT. FURTHER EVALUATION AND TREATMENT OF YOUR CONDITION CAN WAIT UNTIL YOU ARE SEEN IN YOUR DOCTORS OFFICE WITHIN THE NEXT 1-2 DAYS. IT IS YOUR RESPONSIBILITY TO MAKE AN APPOINTMENT FOR FOLOW-UP CARE. IF YOU HAVE A PRIMARY DOCTOR --you should call your primary doctor and schedule an appointment IF YOU DO NOT HAVE A PRIMARY DOCTOR YOU CAN CALL OUR PHYSICIAN REFERRAL HOTLINE AT IF YOU CAN NOT AFFORD TO SEE A PHYSICIAN YOU CAN CHOSE FROM THE FOLLOWING [facility] [address] [facility] [address] [facility] [address] [facility] [address] [facility]. [facility] [address] [facility] [address] Additional Instructions: Follow up with your PCP within the next 1-3 days for a more thorough evaluation and a possible referral to a specialist. Return the the emergency department immediately if symptoms worsen or change. If you have any questions regarding medications, ask your pharmacist or us before you leave. If any adverse reactions, occur while taking your medications, discontinue the treatment and return to the emergency department immediately. If any new or worsening symptoms, uncontrolled fevers, or other unexplained symptoms occur, return to the emergency department immediately. Take your medications as directed, and complete the entire course of treatment. CHAPITO IZQUIERDO PA-C July 16, 2016 20:55
== END 2016-07-16 20:55 | disposition home or self-care (01) ==
LOC: FTE 14:28
DX: R20.2 Paresthesia of skin (principal); F17.210 Nicotine dependence, cigarettes, uncomplicated
CPT/HCPCS: 70450; 70486; J2270; 96372

== ENCOUNTER 2017-03-28 10:49 | Emergency (ER) | END 2017-03-28 16:50 | disposition home or self-care (01) ==